=== PATIENT | female | born 1935 | race Two or more races ===

== ENCOUNTER 2021-01-19 22:32 | Emergency (ER) | payer MEDICARE ==
[~2021-01-19] VITALS: Ht 165.1 cm; Wt 70.0 kg
[2021-01-19 22:55] VITALS: BP 147/65
[2021-01-19] MEDS ORDERED: BACITRACIN ZINC OINT UDPKT TOP ONE (23:15)
== END 2021-01-19 23:35 | disposition home or self-care (01) ==
LOC: ER 22:32
DX: S01.01XA Laceration without foreign body of scalp, initial encounter (principal); E78.00 Pure hypercholesterolemia, unspecified; W01.0XXA Fall on same level from slipping, tripping and stumbling without subsequent striking against object, initial encounter; Y93.89 Activity, other specified; Y92.89 Other specified places as the place of occurrence of the external cause; Y99.8 Other external cause status
CPT/HCPCS: 12001; 99283